=== PATIENT | female | born 1995 | race Caucasian/White ===

== ENCOUNTER 2020-09-30 21:37 | Emergency (ER) | payer OTHER ==
[~2020-09-30 21:37] MED LIST: COLACE 100MG C100 MG PO; IBUPROFEN600 MG PO; LORTAB 5-325 M1 EACH PO; MACROBID 100 M100 MG PO; PHENERGAN 25 MG25 M1 PO; PRENATAL VITAM1 EAC8 PO; ZANTAC150 MG PO
== END 2020-10-01 | disposition home or self-care (01) ==
LOC: ER1 21:37
DX: J06.9 Acute upper respiratory infection, unspecified (principal); F17.290 Nicotine dependence, other tobacco product, uncomplicated; Z20.822 Contact with and (suspected) exposure to COVID-19
CPT/HCPCS: 99283; U0003

== ENCOUNTER 2020-10-10 01:23 | Emergency (ER) | payer OTHER | END 2020-10-10 03:09 | disposition home or self-care (01) | LOC: ER1 01:23 | DX: J02.9 Acute pharyngitis, unspecified (principal); Z20.822 Contact with and (suspected) exposure to COVID-19 | CPT/HCPCS: 71045; 87081; 87880; 99283; U0002 ==

== ENCOUNTER 2021-10-03 18:47 | Emergency (ER) | payer OTHER ==
[2021-10-03] MEDS ORDERED: ERYTHROMYCIN O3.5 GM OU (19:58)
[2021-10-03] MEDS ORDERED: AUGMENTIN 875-1 EACH PO (19:58)
== END 2021-10-03 20:10 | disposition home or self-care (01) ==
LOC: ER1 18:47
DX: H10.9 Unspecified conjunctivitis (principal); F17.290 Nicotine dependence, other tobacco product, uncomplicated
CPT/HCPCS: 99283